=== PATIENT | female | born 1965 | race American Indian/Alaskan Native ===

== ENCOUNTER 2016-09-29 08:18 | Outpatient (CLI) | payer BC ==
[2016-09-29] MEDS ORDERED: LEXISCAN IV ONE ×2 (11:28→11:35)
--- NOTE | 2016-09-30 11:04 | Treadmill Report ---
ORDERING PHYSICIANS: Nathen Wilcox MD and Dr. Kiser. PROCEDURE: Preop for a gastric sleeve operation. IMAGING PROTOCOL: The patient received 10 mCi of Technetium 99m Tetrofosmin for resting image and 28 mCi of Technetium 99m Tetrofosmin for stress imaging. The imaging for the whole procedure was completed 30-90 minutes following the initial injection of Technetium 99m tetrofosmin. The SPECT imaging in the 180 degree arc was performed in the right anterior oblique projection. Computerized reconstruction of the images was performed for analysis. IMAGING RESULTS: Normal cavity size from stress to rest. Normal distribution of radionuclide in the anterior, inferior, septal, and apical regions. Gated SPECT, greater than 65%. The patient exercised on Allan protocol for 6 minutes, had no EKG changes suggestive of ischemia. SUMMARY: 1. Negative treadmill EKG. 2. Fair exercise capacity 6 minutes Allan protocol. 3. No exaggerated BP response to exercise. 4. Normal rest and stress myocardial perfusion scan. No significant stress ischemia. No wall motion abnormality. Gated SPECT, greater than 65%. JOB# [id number] Cindy/NTS
== END 2016-09-29 08:19 | disposition home or self-care (01) ==
LOC: ECHO 08:18
PROVIDERS: ATTEND Internal Medicine
DX: Z01.818 Encounter for other preprocedural examination (principal); I10 Essential (primary) hypertension; R06.00 Dyspnea, unspecified; R94.31 Abnormal electrocardiogram [ECG] [EKG]
CPT/HCPCS: 78452; 93017; 93306; A9502; J2785